=== PATIENT | female | born 1975 | race Caucasian/White ===

== ENCOUNTER 2017-09-26 23:45 | Emergency (ER) | payer MEDICAID ==
[~2017-09-26] VITALS: Ht 165.1 cm; Wt 63.5 kg
--- NOTE | 2017-09-27 00:24 | Emergency Room Report ---
History of Present Illness General Chief Complaint: Lower Extremity Injury Source: Patient Present Illness HPI Is a 41-year-old female with no significant past medical history. She presents with chief complaint of right toe deformity. She stopper towed and now his been to the right. Mild pain. She been walking on it. Onset 2 hours ago. No fever chills but no nausea no vomiting. No other injury. She thought she may have dislocated. Allergies: Coded Allergies: No Known Allergies (Unverified , 09/26/17) Patient History Past Medical History: see triage record, old chart reviewed Past Surgical History: none Pertinent Family History: none Social History: Denies: smoking Last Menstrual Period: 09/03/2017 Now: No Immunizations: other Reviewed Nursing Documentation: PMH: Agreed; PSxH: Agreed Nursing Documentation-PMH Past Medical History: No Stated History Review of Systems Eye: Denies: eye pain, blurred vision ENT: Denies: ear pain, nose congestion, throat swelling Respiratory: Denies: cough, shortness of breath Cardiovascular: Denies: chest pain, palpitations Gastrointestinal: Denies: abdominal pain, diarrhea, nausea, vomiting Musculoskeletal: Reports: joint pain; Denies: back pain Skin: Denies: rash Neurological: Denies: headache, numbness Endocrine: Denies: increased thirst, increased urine Hematologic/Lymphatic: Denies: easy bruising All Other Systems: negative except mentioned in HPI Physical Exam Vital Signs Date Time Temp Pulse Resp B/P (MAP) Pulse Ox O2 Delivery O2 Flow Rate FiO2 09/26/17 23:53 98.1 81 16 110/76 96 Room Air 98.1 vitals normal Sp02 EP Interpretation: reviewed, normal General Appearance: well appearing, no apparent distress, alert Head: normocephalic, atraumatic Eyes: bilateral eye PERRL, bilateral eye EOMI ENT: hearing grossly normal, normal pharynx Neck: full range of motion, supple, no meningismus Respiratory: chest non-tender, lungs clear, normal breath sounds Cardiovascular #1: regular rate, rhythm, no murmur Gastrointestinal: normal bowel sounds, non tender, no mass, no organomegaly, no bruit, non-distended Musculoskeletal: back normal, gait/station normal, normal range of motion, other - Right fifth toe: There is ecchymosis on and aspect of it. She has deformity of 45 laterally. Sensation normal. Pulses normal. Neurologic: alert, oriented x3 Psychiatric: mood/affect normal Skin: warm/dry Procedures Joint Reduction Joint Reduction : Consent: Verbal Joint Reduction Site: other - fifth toe, right Procedural Sedation: No Pre-Procedure NV Exam: Yes Post-Procedure NV Exam: Yes Post Joint Reduction Film: joint reduced Patient Tolerated: Well Complications: None Progress With retraction was able to reduce the joint. Patient placed in a areli tape splint Medical Decision Making Diagnostic Impression: Primary Impression: Toe fracture, right Qualified Codes: S92.511A - Displaced fracture of proximal phalanx of right lesser toe(s), initial encounter for closed fracture ER Course Patient presents with fracture of her fifth toe. Not an open fracture. No dislocation. This will be discharged home. Other X-Ray Diagnostic Results Other X-Ray Diagnostic Results : X-Ray ordered: toe fracture, right # of Views/Limited Vs Complete: 3 View Indication: Pain EP Interpretation: Yes Interpretation: no dislocation, no soft tissue swelling, other - displaced frx of middle phalanx Impression: Other - toe frx of phalanx Last Vital Signs Date Time Temp Pulse Resp B/P (MAP) Pulse Ox O2 Delivery O2 Flow Rate FiO2 09/26/17 23:53 98.1 81 16 110/76 96 Room Air 98.1 Status: improved Disposition: HOME, SELF-CARE Condition: Stable Scripts Ibuprofen* (MOTRIN*) 600 Mg Tablet 600 MG ORAL THREE TIMES A DAY, #30 TAB 0 Refills Prov: MARYAM SHERIFF M.D. 09/27/17 Additional Instructions: Follow up with your doctor in 7 days. Return if symptoms worsen. MARYAM SHERIFF M.D. Sep 27, 2017 00:24
[2017-09-27] MEDS ORDERED: IBUPROFEN600 MG ORAL (00:38)
[2017-09-27 00:52] VITALS: BP 110/76
--- NOTE | 2017-09-27 12:16 | Diagnostic Imaging Report ---
Indication: Pain in right fifth toe Technique: 3 views of the right fifth toe Comparison: none Findings: There is an oblique slightly angulated minimally displaced comminuted fracture of the midshaft of the fifth proximal phalanx. This may extend into the articular surface. There is fusion of the fifth distal interphalangeal joint-normal anatomic variant. The joint spaces are preserved Impression: Positive for fifth proximal phalangeal fracture. This agrees with the preliminary interpretation described in the electronic medical record by the emergency room physician
== END 2017-09-27 01:25 | disposition home or self-care (01) ==
LOC: EMR 23:59
DX: S92.511A Displaced fracture of proximal phalanx of right lesser toe(s), initial encounter for closed fracture (principal); W22.8XXA Striking against or struck by other objects, initial encounter; Y92.009 Unspecified place in unspecified non-institutional (private) residence as the place of occurrence of the external cause
CPT/HCPCS: 28515; 73660; 99283; Z7502